=== PATIENT | female | born 2000 | race Hispanic/Latino ===

== ENCOUNTER 2025-01-11 17:11 | Emergency (ER) | payer SELFPAY ==
[2025-01-11] VITALS (8 sets, daily range): BP systolic 105–123; BP diastolic 64–88
[~2025-01-11] VITALS: Ht 157.5 cm; Wt 63.5 kg
[2025-01-11] MEDS ORDERED: SODIUM CHLORIDE 0.9% 1,000 ML IV STA (17:25)
[2025-01-11] MEDS ORDERED: Barium Sulfate (Readi-Cat 2 Berry) 450 ML/BTL PO ONE (17:35)
[2025-01-11] MEDS ORDERED: DIATRIZOATE MEGLUMINE & SODIUM 30 ML/BTL PO ONE (17:35)
[2025-01-11] MEDS ORDERED: Barium Sulfate (Readi-Cat 2 Banana) 450 ML/BTL PO ONE (17:35)
[2025-01-11 17:39] LABS: BASO% 0.3 % (0-3); HEMATOCRIT 41.5 % (37.0-47.0); IMMATURE GRANULOCYTES 0.1 % (0.0-5.0); LYMPH% 16.8 % (15-41); MEAN CELL VOLUME 94.1 fL CALC (80.0-100.0); MEAN CORPUSCULAR HGB 31.7 pG CALC (26.0-32.0); MEAN CORPUSCULAR HGB CONC 33.7 g/dL CAL (32.0-36.0); MONO% 6.3 % (2-13); NEUT# 5.96 thou/uL (2.00-7.15); NEUT% 75.5 % (42-76); RED BLOOD COUNT 4.41 mill/uL (4.20-5.60); RED CELL DISTRI WIDTH 11.7 % (11.5-15.5)
[2025-01-11] MEDS ORDERED: ONDANSETRON HCl 4 MG/2 ML SDV IV STA (17:40)
[2025-01-11 17:51] LABS: ALBUMIN 4.8 g/dL (3.2-5.0); ALKALINE PHOSPHATASE 200 u/l (38-126); ANION GAP 13 (6-22 (CALC)); BILIRUBIN, TOTAL 2.8 mg/dL (0.02-1.3); BUN 8 mg/dL (7-17); BUN/CREATININE RATIO 12 (12-20 (CALC)); CARBON DIOXIDE 27 mmol/l (22-30); CHLORIDE 103 mmol/l (95-108); CREATININE 0.6 mg/dL (0.5-1.0); ESTIMATED GFR 128 ML/MIN (>=90 (CALC)); POTASSIUM 3.5 mmol/l (3.5-5.1); SGOT/AST 499 u/l (14-36); SODIUM 139 mmol/l (137-146); TOTAL PROTEIN 8.5 g/dL (6.3-8.2)
[2025-01-11] MEDS ORDERED: LIDOCAINE VISCOUS 2% 15 ML UDC PO ONE (18:35)
[2025-01-11] MEDS ORDERED: ALUM & MAG HYDROX-SIMETHICONE 30 ML PO ONE (18:35)
[2025-01-11 19:19] LABS: AMYLASE 293 u/l (30-110)
[2025-01-11 19:26] LABS: LIPASE 2873 u/l (23-300)
[2025-01-11 19:37] LABS: URINE BLOOD DIPSTICK Negative (NEGATIVE); URINE GLUCOSE - DIPSTICK Negative (NEGATIVE); URINE KETONE Negative (NEGATIVE); URINE LEUK ESTERASE Negative (NEGATIVE); URINE NITRITE - DIPSTICK Negative (Negative); URINE PH 8.5 (4.5-8.0); URINE PROTEIN - DIPSTICK Negative (NEG-TRACE); URINE SPECIFIC GRAVITY 1.015
[2025-01-11 19:39] LABS: URINE COLOR Yellow
[2025-01-11] MEDS ORDERED: MORPHINE SULFATE 4 MG/ML VIAL IV STA (20:19)
== END 2025-01-11 22:18 | DRG 446 ==
LOC: ED 17:11
PROVIDERS: Clinical Nurse Specialist Emergency
DX: K83.8 Other specified diseases of biliary tract (principal); R74.8 Abnormal levels of other serum enzymes
CPT/HCPCS: J2405